=== PATIENT | female | born 1990 | race Caucasian/White ===

== ENCOUNTER → 2016-11-17 | Outpatient (CLI) | payer OTHER ==
[~2016-11-17] MED LIST: MULT-506 PO; SUMA6KIT SC
--- NOTE | 2016-11-17 11:32 | DIAGNOSTIC IMAGING REPORT ---
LEFT LOWER EXT JOINT WITHOUT CLINICAL HISTORY: 26 years-old Female presenting with twisting injury while playing soccer, acute pain and difficulty ambulating. TECHNIQUE: Multisequence, multiplanar MR imaging of the left knee was performed without the use of intravenous contrast. IV contrast: None. COMPARISON: None. FINDINGS: Localizer images: Unremarkable. Bony edema noted at the posterior lateral corner of the tibial plateau as well as at the posterior medial corner. Minimal increased signal intensity and irregularity of the articular cartilage of the patella along the median prominence and lateral facet most pronounced superiorly. Opposing trochlear cartilage normal. Remainder of articular cartilage normal. Medial meniscus intact. Irregularity of the posterior root of the medial meniscus with blunting of the free and suggestion of a meniscal fragment in the intercondylar notch. Disruption of the mid fibers of the anterior cruciate ligament. Posterior cruciate ligament intact. Increased signal intensity both superficial and deep to the proximal medial collateral ligament compatible with grade 1 sprain. Lateral collateral ligament complex including the biceps femoris tendon, fibular collateral ligament, popliteus tendon, and iliotibial band intact. Quadriceps tendon and patellar tendon intact. Prepatellar edema most pronounced along the superficial aspect. Medial and lateral patellar retinacula intact. Moderate knee joint effusion. Suggestion of mild synovitis. Prominent popliteal cyst. Significant interventional edema. Normal muscle bulk. Mildly increased signal intensity of the origin of the lateral head of the gastrocnemius. IMPRESSION: 1. Posterolateral corner bony contusion as well as posteromedial corner bony contusion of the tibial plateau. 2. The lateral collateral ligament complex remains intact. Grade 1 sprain of the medial collateral ligament. 3. Complete tear of the anterior cruciate ligament. 4. Concern for tear of the posterior root of the medial meniscus potentially with a meniscal fragment in the intercondylar notch. 5. Extensive superficial and interfascial edema with muscle strain at the lateral head of the gastrocnemius. 6. Moderate knee joint effusion with mild synovitis. Electronically signed by: William Mart M.D. 11/17/2016 11:30 AM Dictated Date/Time: 11/17/2016 11:21 AM
== END | disposition home or self-care (01) ==
LOC: C.MRI 09:55
PROVIDERS: ATTEND Orthopaedic Surgery
DX: M25.562 Pain in left knee (principal)

== ENCOUNTER → 2017-01-19 | Day surgery (SDC) | payer OTHER ==
[2016-12-28 15:35] VITALS: BMI 27.0
[~2017-01-19] VITALS: Ht 167.6 cm; Wt 66.0 kg
[~2017-01-19] MED LIST changes: +ATROPINE SULFATE 0.1 MG/ML 5ML SYR IV PRN; +CEFAZOLIN 1000MG IV PUSH 5 ML IV SCH; +CEFAZOLIN SOD 1 GM VIAL ONE; +CEFAZOLIN SOD 1000MG/5 ML IV PUSH IV SCH; +DEXAMETHASONE SOD INJ 4 MG/ML VIAL ONE; +EpHEDrine SULFATE INJ 50 MG/ML AMP IV PRN; +EpINEphrine INJ 1MG/ML AMP 1 MG/ML AMP ONE; +FENTANYL CITRATE INJ 50 MCG/1 ML 2 ML VIAL ONE; +GLYCOPYRROLATE INJ 0.2 MG/ML VIAL ONE; +KETO10TA PO; +KETOROLAC TROMETHAMINE 30 MG/ML VIAL ONE; +LACTATED RINGER'S 1000ML 1,000 ML IV SCH; +LIDOCAINE HCL 2% 2 ML VIAL (20MG/ML) ONE; +MIDAZOLAM HCL 1 MG/ML 2ML VIAL ONE; +NURSING VERBAL MED ORDER ONE; +ONDANSETRON INJ 2 MG/ML 2 ML VIAL IV PRN; +ONDANSETRON INJ 2 MG/ML 2 ML VIAL ONE; +OXYC-57 PO; +OXYCODONE/ACETAMINOPHEN 5-325 TAB PO PRN; +PROPOFOL IV EMULSION 10 MG/ML 20 ML VIAL IV ONE; +ROPIVACAINE 0.5% 5 MG/ML 30 ML VIAL ONE; +SCOPOLAMINE 1.5 MG TDSY TD ONE; +SODIUM CHLORIDE 0.9% 1000ML 1,000 ML IV SCH
[2017-01-19 06:42] VITALS: Ht 167.6 cm; Wt 66.0 kg
--- NOTE | 2017-01-19 06:54 | History & Physical Bridge - SC ---
H&P Re-Evaluation Bridge Note: I have examined the patient, reviewed the History & Physical and in the interval since the performance of the History & Physical I have noted the following changes of clinical significance: No changes noted
--- NOTE | 2017-01-19 09:16 | [facility] Post Operative Brief Note ---
Immediate Operative Summary Operative Date Jan 19, 2017. Pre-Operative Diagnosis Left knee anterior cruciate ligament rupture Post-Operative Diagnosis Same as pre-op + Lateral Meniscus Tear Procedure(s) Performed Left Knee Arthroscopic Anterior Cruciate Ligament Reconstruction, Bone Patella Bone Autograft, Partial lateral Meniscectomy. Surgeon Dr. Kahn Reprint Sorter Surgeon(s) Nguyễn Meléndez PA-C Estimated Blood Loss Minimium Findings Left ACL Tear + Lateral Meniscus Tear Specimens None Anesthesia General Complication(s) None Disposition Recovery Room / PACU
--- NOTE | 2017-01-19 09:17 | Discharge Instructions-SurgCtr ---
Discharge Instructions Date of Service Jan 19, 2017. Visit Reason for Visit: Left Knee Rupture Acl, Pain Discharge Discharge Diagnosis / Problem: left knee ACL tear, lateral meniscus tear Discharge Goals Goal(s): Decrease discomfort, Improve function, Therapeutic intervention Activity Recommendations Activity Limitations: per Instructions/Follow-up section Weightbearing Status: Left weightbearing (as tolerated with brace ) Anesthesia . Post Anesthesia Instructions: If you have had General Anesthesia or IV Sedation: * Do not drive today. * Resume driving when surgeon permits. * Do not make important decisions or sign legal documents today. * Call surgeon for: 1. Temperature elevations greater than 101 degrees F. 2. Uncontrollable pain. 3. Excessive bleeding. 4. Persistent nausea and vomiting. 5. Medication intolerance (nausea, vomiting or rash). * For nausea and vomiting use only clear liquids such as: tea, soda, bouillon until nausea subsides, then gradually increase diet as tolerated. * If you have any concerns or questions, call your surgeon's office. If physician is unavailable and it is an emergency, call 911 or go to the nearest emergency room. . Instructions / Follow-Up Instructions / Follow-Up MEDICATIONS: * Resume previous medications unless instructed otherwise by your surgeon. * Always take pain medication on a full stomach or with food to avoid upset stomach. * Do not drink alcohol or drive while taking narcotics. * Ibuprofen or Tylenol may be taken if narcotic not needed. No ibuprofen while taking toradol SPECIAL CARE INSTRUCTIONS: __ None _x_ Keep extremity elevated and iced x 48 hours; apply ice 20-30 minutes 8-10 times/day. May remove at night. _x_ Crutches __ May discard when able _x_ Brace (remove for therapy exercises) __ 24 hrs/day __ Remove at night _x_ Dressing __ Maintain until seen in office, may shower with plastic over site _x_ Remove dressings in 24-48 hours and then may shower _x_ Cover incisions with band-aids after showering _x_ Do not remove steri-strips Call physician if chills or temperature rises above 102 degrees or pain unrelieved by prescribed pain medications. Office [phone] follow up in 2 weeks Diet Recommendations Home Diet: resume previous diet Procedures Procedures Performed: Left Knee Arthroscopic Anterior Cruciate Ligament Reconstruction, Bone Patella Bone Autograft, Partial lateral Meniscectomy. Pending Studies Studies pending at discharge: no Medical Emergencies . Who to Call and When: Medical Emergencies: If at any time you feel your situation is an emergency, please call 911 immediately. . Non-Emergent Contact Non-Emergency issues call your: Surgeon . . "Provider Documentation" section prepared by Forrest Meléndez. .
[2017-01-19] MEDS: FENTANYL CITRATE INJ 50 MCG/1 ML 2 ML VIAL IV PRN ×2 (09:31→09:57)
[2017-01-19 10:33] VITALS: TEMP 37.1
--- NOTE | 2017-01-19 10:44 | Anesthesia Progress Nt - [facility] ---
Anesthesia Post Op Note Date & Time Jan 19, 2017 at 10:43 Vital Signs Pain Intensity: 0 Vital Signs Past 12 Hours Date Time Temp Pulse Resp B/P (MAP) Pulse Ox O2 Delivery O2 Flow Rate FiO2 01/19/17 10:16 98/52 01/19/17 10:15 36.8 62 16 98/52 (71) 95 Room Air Mask 01/19/17 10:14 57 22 01/19/17 10:14 57 22 94 01/19/17 10:11 108/54 01/19/17 10:09 54 20 01/19/17 10:09 54 20 99 01/19/17 10:06 102/52 01/19/17 10:04 52 18 99 01/19/17 10:04 52 18 01/19/17 10:01 101/53 01/19/17 09:59 50 6 01/19/17 09:59 50 6 99 01/19/17 09:56 111/64 01/19/17 09:54 58 14 01/19/17 09:54 57 14 95 01/19/17 09:51 112/64 01/19/17 09:49 59 9 95 01/19/17 09:49 58 9 01/19/17 09:46 109/72 01/19/17 09:44 83 17 98 01/19/17 09:44 84 17 01/19/17 09:41 106/64 01/19/17 09:39 63 1 01/19/17 09:39 62 1 99 01/19/17 09:36 108/65 01/19/17 09:34 61 6 99 01/19/17 09:34 60 6 01/19/17 09:31 110/62 01/19/17 09:29 67 18 01/19/17 09:29 68 18 100 01/19/17 09:26 118/64 01/19/17 09:24 68 20 100 01/19/17 09:24 68 20 01/19/17 09:21 122/70 01/19/17 09:19 90 15 98 01/19/17 09:19 90 15 01/19/17 09:16 114/78 01/19/17 09:14 105 13 127/62 100 01/19/17 09:14 105 13 01/19/17 09:13 37.0 110 16 127/62 100 Mask 6 01/19/17 06:59 67 10 97 01/19/17 06:59 65 01/19/17 06:58 59 01/19/17 06:58 58 0 100 01/19/17 06:56 133/49 01/19/17 06:53 72 12 112/70 01/19/17 06:48 66 0 01/19/17 06:26 36.7 79 16 113/67 (82) 98 Room Air Notes Mental Status: alert / awake / arousable, participated in evaluation Pt Amnestic to Procedure: Yes Nausea / Vomiting: adequately controlled Pain: adequately controlled Airway Patency, RR, SpO2: stable & adequate BP & HR: stable & adequate Hydration State: stable & adequate Anesthetic Complications: no major complications apparent
[2017-01-19 11:09] VITALS: BP 113/70; PULSE 66; O2SAT 99
--- NOTE | 2017-01-19 21:11 | OPERATIVE REPORT ---
DATE OF OPERATION: 01/19/2017 SURGEON: Dr. Ozzie Kahn. C[employer]ISLE CASHIER: ANDERS Alexander. PREOPERATIVE DIAGNOSIS: Left knee anterior cruciate ligament tear. POSTOPERATIVE DIAGNOSES: 1. Left knee anterior cruciate ligament tear. 2. Left knee lateral meniscus tear. 3. Left knee mild degenerative joint disease. PROCEDURES PERFORMED: 1. Left knee exam under anesthesia. 2. Left knee diagnostic arthroscopy. 3. Left knee arthroscopic ACL reconstruction with 9 mm bone patella tendon bone autograft. 4. Left knee partial lateral meniscectomy. COMPLICATIONS: None. ESTIMATED BLOOD LOSS: Minimal. TOURNIQUET TIME: 89 minutes at 300 mmHg. ANESTHESIA: General with adductor canal block. DRAINS: None. SPECIMENS: None. OPERATIVE INDICATIONS: The patient is a 26-year-old very active female who injured her knee about 2 months ago playing soccer. She sustained a noncontact cutting injury. She was seen and diagnosed with an ACL tear which was confirmed by MRI. The patient restored her range of motion and elected to proceed with surgical treatment. OPERATIVE FINDINGS: Examination under anesthesia of the left knee revealed minimal knee effusion. Her range of motion was full extension and about 10 degrees of hyperextension to 135+ degrees of flexion. She had a positive Jere, grade 2 pivot, negative anterior drawer, negative posterior drawer. No varus or valgus instability. There was no posterolateral rotatory instability. Yeimi's was negative for mechanical symptoms. ARTHROSCOPIC FINDINGS: Arthroscopic findings revealed minimal knee effusion. In the suprapatellar pouch, there were no loose bodies. The undersurface of patella revealed some grade 2 changes. The trochlea was well preserved. In the intercondylar notch, the ACL was completely torn in the midsubstance. The PCL was intact. In the lateral compartment, there was a tear at the posterior root of the lateral meniscus. The remainder of the meniscus was intact. Mild degenerative changes to cartilage. In the medial compartment, the meniscus was intact. There were some mild degenerative changes to the cartilage. OPERATIVE PROCEDURE: The patient taken to the operating room, identified and placed on the operating table in supine position. All contact areas were appropriately padded. IV antibiotics were provided by anesthesia team. A general anesthetic was implemented. An adductor canal block had been provided in the holding area. A left thigh tourniquet was then placed and left knee was then examined under anesthesia with findings as described above. The left leg was then prepped and draped in the usual sterile fashion. Left leg was elevated and exsanguinated with Esmarch and tourniquet was placed at 300 mmHg. An anterior approach to the left knee was then performed through a longitudinal incision over the medial border of the patellar tendon. This was to harvest the graft. This incision extended from the inferior pole of the patella to the tibial tubercle. Sharp dissection was carried through the subcutaneous tissues down to the extensor mechanism. Subcutaneous tissues were mobilized circumferentially. An incision was made in the central aspect of the paratenon over the patella tendon. The paratenon was dissected off the patellar tendon. The patellar tendon width was then measured to about 26 mm in width. A 9 mm bone patella tendon bone autograft was then harvested with 2 cm bone plugs in both the patella and the tibial tubercle. This was taken to the back table and tailored to fit through 9 mm tunnels. A single #5 suture was placed through the tibial block to place in the femur and 3 sutures were placed through the patellar block to place in the tibia. The graft was then covered and protected throughout the case. During graft preparation, a 6 mm x 2 cm bone plug was harvested from the proximal tibia and placed in the patella defect. The patellar tendon was then reapproximated with 0 Vicryl suture in a [id number] fashion. The paratenon was then closed with 0 Vicryl suture in a running fashion. Subperiosteal flap was elevated over the anterior medial aspect of the tibia. Attention was then drawn to knee arthroscopy. Routine left knee arthroscopy was then performed through typical anteromedial and anterolateral portals. A supralateral outflow portal was established for outflow. The remnant of the ACL was excised. A small notchplasty was performed. I then used motorized and hand controlled instruments to resect the unstable portion of posterior horn of the lateral meniscus. Attention was then drawn to the ACL reconstruction. The tibial guide was set at 52 degrees as the patella tendon length measured 42 mm in length. A guidewire was placed in the area of the proposed tibial tunnel. It was overdrilled with a 9 mm solid reamer. The tunnel was cleaned of all debris. A 7 mm over the top guide was then placed in the anterior medial portal. The knee was maximally flexed. A guidewire was placed in the area of the proposed femoral tunnel. The guidewire was then overdrilled with a 9 mm acorn drill for a distance of 25 mm. The tunnel was notched and then cleaned of all debris. A 2 pin passer was then used to pass the graft through the tibial tunnel up into the femoral tunnel. The graft was then fixed proximally with a 7 x 20 round headed interference screw. This provided excellent fixation. The knee was cycled several times. The knee was brought out into full extension. It was tensioned in full extension and the sutures were tied over a med/surg tibial plate/screw/post device. Once this was complete, the knee was examined. There was no significant translation to Jere and no pivot. The scope was placed back in the knee and the graft was appropriately tensioned in flexion and extension. There was no impingement. The knee arthroscopy instruments were used to debride all extraneous debris in the knee joint. Once this was complete, the arthroscopic instruments were then removed from the knee. The anteromedial portal was closed with 2-0 Vicryl suture in a [id number] fashion. The anterior lateral portal was closed with 3-0 Prolene suture. The periosteal flap over the tibial tunnel was closed with 0 Vicryl suture in a [id number] fashion. The knee was then injected with 30 mL of 0.5% ropivacaine with epinephrine and 30 mg of Toradol. The tourniquet was then let down for final tourniquet time of 89 minutes. Hemostasis was assured with use of electrocautery. The wound was once again irrigated. The subcutaneous tissues were then closed with 2-0 Dexon suture in a buried interrupted fashion. Skin was closed with 3-0 Prolene suture in a subcuticular fashion. The leg was then cleaned and dried and a sterile dressing of Steri-Strips, Xeroform, 4 x 4, sterile cast padding, Danny bandage, cold pack and knee immobilizer applied. The patient then brought out of general anesthesia and transferred to the recovery room in stable condition. The patient tolerated the procedure with no complications. All needle and sponge counts were correct at the end of the operation. I attest to the content of the Intraoperative Record and any orders documented therein. Any exceptions are noted below. DAVID
== END | disposition home or self-care (01) ==
LOC: X.SURG 06:19
PROVIDERS: ATTEND Orthopaedic Surgery Sports Medicine
DX: S83.512A Sprain of anterior cruciate ligament of left knee, initial encounter (principal); S83.282A Other tear of lateral meniscus, current injury, left knee, initial encounter; M17.12 Unilateral primary osteoarthritis, left knee; X50.0XXA Overexertion from strenuous movement or load, initial encounter; Y93.66 Activity, soccer